=== PATIENT | female | born 1950 | race Caucasian/White ===

== ENCOUNTER 2020-07-28 08:04 | Outpatient (NON) | payer MEDICARE, SELFPAY ==
[2020-07-28 19:23] LABS: SARS-CoV-2 RNA PCR Positive
== END 2020-07-28 08:05 ==
PROVIDERS: PCP Family Medicine; Visit Provider Nurse Practitioner Family
DX: U07.1 COVID-19 (principal)
CPT/HCPCS: C9803; U0003

== ENCOUNTER → 2020-09-19 10:13 | Outpatient (CLI) | payer MEDICARE, SELFPAY ==
--- NOTE | ~2020-09-19 | MM_ITS ---
EXAMINATION: MM screening [facility] BI w rocky HISTORY: Screening TECHNIQUE: Craniocaudal and mediolateral oblique 3-D tomosynthesis images were obtained and synthetic 2-D images were generated. CAD analysis was submitted and interpreted. COMPARISON: Comparison to multiple prior studies sequentially, with oldest reviewed study dated 04/22. BREAST PARENCHYMAL COMPOSITION: There are scattered areas of fibroglandular density. FINDINGS: There is no evidence of suspicious mass, calcification, or architectural distortion to sugg est malignancy in either breast. There has been no suspicious interval change. IMPRESSION: 1. No mammographic evidence of malignancy. 2. Recommend routine screening mammography in one year. BI-RADS Category 1: Negative Reviewed, dictated and finalized at location A. [employer]
--- NOTE | ~2020-09-19 | DEXA_ITS ---
Bone Density Report Name: Lorraine Gold Age: 70 Sex: Female Ethnicity: White Date of : 1950 Indication: osteopenia; prior fracture; postmenopausal Referring Provider: Cristina Neff Study: Bone densitometry was performed. Exam Date: September 19, 2020 Accession number: [id number] Bone Density: Region BMD T-score Z-score Classification AP Spine (L1-L4) 1.029 -0.2 1.8 Normal Femoral Neck (Left) 0.779 -0.6 1.1 Normal Total Hip (Left) 0.862 -0.7 0.8 Normal Femoral Neck (Right) 0.767 -0.7 1.0 Normal Total Hip (Right) 0.813 -1.1 0.4 Osteopenia Total Hip Mean 0.838 -0.9 0.6 Normal World Health Organization criteria for BMD impression classify patients as: Normal (T-score at or above -1.0), Osteopenia (T-score between -1.0 and -2.5), or Osteoporosis (T-score at or below -2.5). 10-year Fracture Risk(1): Major Osteoporotic Fracture 13% Hip Fracture 1.0% Reported Risk Factors: [place] (), Neck BMD=0.767, BMI=31.5, previous fracture (1) FRAX(R) Version 3.08. Fracture probability calculated for an untreated patient. Fracture probability may be lower if the patient has received treatment. Previous Exams: Region Exam Age BMD T-score BMD Change BMD Change Date g/cm2 vs Baseline vs Previous AP Spine(L1-L4) 09/19/2020 70 1.029 -0.2 0.026* 0.006 06/16/2018 68 1.023 -0.2 0.020 0.020 05/16/2015 65 1.002 -0.4 Total Hip(Left) 09/19/2020 70 0.862 -0.7 0.006 0.021 06/16/2018 68 0.841 -0.8 -0.015 -0.015 05/16/2015 65 0.857 -0.7 Total Hip(Right) 09/19/2020 70 0.813 -1.1 -0.026 0.010 06/16/2018 68 0.803 -1.1 -0.036* -0.036* 05/16/2015 65 0.839 -0.8 *Denotes significance at 95% confidence level, LSC for AP Spine = 0.022 g/cm2, LSC for Total Hip = 0.027 g/cm2 Clinical Information Provided by Patient: Has had a low trauma fracture Has used the following medications: Vitamin D, Calcium Patient maximum height was 64.8 Menopause Age: 52 Drinks caffeinated beverages Onset of menses at age 13 Number of children 0 Impression: The patient has low bone mass, based on the Right Total Hip T-score. The patient has an estimated ten-year risk of hip fracture of 1% and an estimated ten-year risk of major fracture of 13%, based on the WHO FRAX algorithm. The patient has risk factors, including: previous fracture.
== END ==
PROVIDERS: PCP Family Medicine; Visit Provider Student in an Organized Health Care Education/Training Program
DX: Z12.31 Encounter for screening mammogram for malignant neoplasm of breast (principal); Z78.0 Asymptomatic menopausal state; M85.851 Other specified disorders of bone density and structure, right thigh
CPT/HCPCS: 77063; 77067; 77080

== ENCOUNTER → 2020-10-26 10:36 | Outpatient (CLI) | payer MEDICARE, SELFPAY ==
--- NOTE | ~2020-10-26 | XR_ITS ---
XR lumbar spine 2-3V DATE: 10/26/2020 11:24 INDICATION: Low back pain TECHNIQUE: AP, lateral, coned lateral lumbosacral views COMPARISON: None FINDINGS: Diffuse osteopenia. Minimal levoscoliosis of lumbar spine. No lumbar spine fracture or bone destruction is evident. The lumbar pedicles and included lower thora cic pedicles are intact. There is multilevel degenerative disc disease, particularly severe at L3-4 and L5-S1. There is grade 1 anterolisthesis at L4-5 due to degenerative change at the apophyseal joints. The sacroiliac joints appear normal. IMPRESSION: Severe degenerative disc disease at L3-4 and L5-S1 Grade 1 anterolisthesis at L4-5 Diffuse osteopenia Reviewed, dictated and finalized at location A.
== END ==
PROVIDERS: PCP Family Medicine; Visit Provider Family Medicine
DX: M47.817 Spondylosis without myelopathy or radiculopathy, lumbosacral region (principal); M85.88 Other specified disorders of bone density and structure, other site
CPT/HCPCS: 72100

== ENCOUNTER → 2021-11-02 11:13 | Outpatient (CLI) | payer MEDICARE, SELFPAY ==
--- NOTE | ~2021-11-02 | MM_ITS ---
EXAMINATION: MM screening [facility] BI w rocky HISTORY: Screening TECHNIQUE: Craniocaudal and mediolateral oblique 3-D tomosynthesis images were obtained and synthetic 2-D images were generated. CAD analysis was submitted and interpreted. COMPARISON: Comparison to multiple prior studies sequentially, with oldest reviewed study dated 05/22. BREAST PARENCHYMAL COMPOSITION: There are scattered areas of fibroglandular density. FINDINGS: There is no evidence of suspicious mass, calcification, or architectural distortion to sugg est malignancy in either breast. There has been no suspicious interval change. IMPRESSION: 1. No mammographic evidence of malignancy. 2. Recommend routine screening mammography in one year. BI-RADS Category 1: Negative Reviewed, dictated and finalized at location A.
== END ==
PROVIDERS: PCP Family Medicine; Visit Provider Student in an Organized Health Care Education/Training Program
DX: Z12.31 Encounter for screening mammogram for malignant neoplasm of breast (principal)
CPT/HCPCS: 77063; 77067

== ENCOUNTER 2022-04-28 09:21 | Emergency (ER) | payer MEDICARE, SELFPAY ==
--- NOTE | ~2022-04-28 | CT_ITS ---
EXAMINATION: CTA chest PE protocol DATE: 04/28/2022 12:32 CDT INDICATION: Chest pain and dyspnea TECHNIQUE: Computed tomographic angiography (CTA) of the chest was performed with 100 mL Omnipaque-35 0 intravenous contrast. The dose-length product was 339.53 mGy-cm. Maximum intensity projection 3D-re constructions of the aorta and other arteries were constructed by the technologist on a separate work station. Automated exposure control and iterative reconstruction technique were employed. COMPARISON: None. FINDINGS: Study is technically adequate without evidence for pulmonary embolism. No significant pleural or pericardial effusion. No evidence for aortic aneurysm or dissection. Heart size normal. No thoracic lymphadenopathy. The upper abdomen is unremarkable. No endobronchial lesions. There is dependent atelectasis. No pneum othorax. No suspicious pulmonary nodules or masses. Mild thoracic spondylosis. IMPRESSION: 1. No evidence for pulmonary embolism. No acute cardiopulmonary disease. Reviewed, dictated and finalized at location A.
--- NOTE | ~2022-04-28 | XR_ITS ---
EXAMINATION: XR chest 1V portable 04/28/2022 09:41 INDICATION: Cough. Right posterior chest pain. PROCEDURE: AP portable chest COMPARISON: 09/13/2015 FINDINGS: The lungs are clear. The cardiomediastinal silhouette is within normal limits. There are no pleural effusions. There is no pneumothorax suspected. IMPRESSION: 1: NO ACUTE CARDIOPULMONARY DISEASE. Reviewed, dictated and finalized at location A.
[2022-04-28 09:25] VITALS: BP 142/82; PULSE 102; RESP 16; TEMP 36.9; O2SAT 100
[2022-04-28 09:44] VITALS: O2SAT 99
[2022-04-28 10:16] LABS: SARS-CoV-2 RNA PCR Negative
[2022-04-28] MEDS: SODIUM CHLORIDE 0.9% IV 1,000 ML 999 ML IV CONT (10:53)
[2022-04-28 11:01] LABS: Basophils Percent Auto 0.3 % (0.2-1.2); Eosinophils Percent Auto 0.2 % (0-4.4); Hemoglobin 13.9 g/dL (12.0-15.0); Immature Granulocyte Absolute 0.07 K/mm3 (0.00-0.031); Immature Granulocyte Percent A 0.6 % (0-0.5); Lymphocytes Absolute Auto 0.91 K/mm3 (0.9-3.2); Lymphocytes Percent Auto 7.5 % (18.3-44.2); Mean Corpuscular HGB Conc 33.1 g/dl (32-36); Mean Corpuscular Volume 93.8 fl (80-100); Mean Platelet Volume 9.3 fl (7.4-10.4); Monocytes Absolute Auto 0.7 K/mm3 (0.1-0.6); Monocytes Percent Auto 5.8 % (2.6-8.5); Neutrophils Absolute Auto 10.4 K/mm3 (1.3-6.7); Neutrophils Percent Auto 85.6 % (45.5-73.1); Platelet Count Result 288 k/mm3 (150-375); Red Blood Count 4.48 M/mm3 (4.2-5.4); Red Cell Distribution Width 13.3 % (11.5-14.5); White Blood Count 12.1 K/mm3 (4.5-10.0)
[2022-04-28 11:15] LABS: Alanine Aminotransferase 30 U/L (6-35); Albumin Level 4.9 g/dL (3.5-5.1); Alkaline Phosphatase 119 U/L (38-126); Anion Gap 13 mmol/L (8-16); Aspartate Amino Transferase 31 U/L (14-36); Bilirubin,Total 0.5 mg/dL (0.2-1.3); Blood Urea Nitrogen 8 mg/dL (7-17); Calcium 9.8 mg/dL (8.4-10.2); Carbon Dioxide 26 mmol/L (22-30); Chloride 93 mmol/L (98-107); Estimated CRCL calculation 60 ml/min; Estimated Glomerular Filt Rate > 60; Glucose 119 mg/dL (65-110); Lipase 56 U/L (23-300); Potassium 4.1 mmol/L (3.4-5.0); Sodium 132 mmol/L (137-145)
[2022-04-28 11:24] VITALS: TEMP 36.9
[2022-04-28 11:46] LABS: Add Urine Microscopic? NO; Appearance Urine Clear (Clear); Bilirubin Urine Negative (Negative); Blood Urine Negative (Negative); Color Urine Yellow (Yellow); Glucose Urine UA Negative (Negative); Ketones Urine Negative (Negative); Leukocyte Esterase Ur Negative LEU/UL (Negative); Nitrate Urine Negative (Negative); Protein Urine Negative (Negative); Specific Grav Ur 1.014 (1.001-1.035); Urobilinogen Urine Negative mg/dL (<2.0)
[2022-04-28 13:14] VITALS: BP 120/64; PULSE 79; RESP 16; O2SAT 99
--- NOTE | 2022-04-28 13:40 | ED.GENADULT ---
HPI - General Adult General Chief complaint: Upper Respiratory Infection Stated complaint: sore throat, cough, right flank pain Time Seen by Provider: 04/28/22 09:22 Source: RN notes reviewed History of Present Illness HPI narrative: Patient presents emergency department from home for upper respiratory infection symptoms. Patient states she has had a sore throat and a cough that began 2 days ago the cough has been mildly productive of yellow sputum she states that with that she is also been having pain in her right lateral and posterior lateral ribs in the lower aspect she states the pain is worse with deep inspiration coughing and movement and better with rest she denies any fevers or chills notes mild rhinorrhea she denies any chest pain shortness of breath abdominal pain nausea vomiting or any other symptoms Related Data Home Medications Medication Instructions Recorded Confirmed aspirin 81 mg tablet,delayed 81 mg PO DAILY 09/03/19 04/09/22 release calcium carbonate 600 mg calcium 600 mg PO DAILY 09/03/19 04/09/22 (1,500 mg) tablet (Calcium) cholecalciferol (vitamin D3) 25 1,000 unit PO DAILY 09/03/19 04/09/22 mcg (1,000 unit) capsule L.acidophilus-B.bifidum-B.longum cap PO 09/20/20 04/09/22 240 mg (3 billion cell) capsule glucosamine-chondroitin 250 mg-200 2 tablet PO TID 09/20/20 04/09/22 mg tablet (Osteo Bi-Flex) multivitamin (Daily Multi-Vitamin 1 tablet PO DAILY 09/20/20 04/09/22 tablet) Allergies Allergy/AdvReac Type Severity Reaction Status Date / Time levofloxacin [From Levaquin] Allergy Intermediate Unknown Verified 04/09/22 09:47 azithromycin Allergy Unknown Verified 04/09/22 09:47 escitalopram Allergy Unknown Verified 04/09/22 09:47 Review of Systems Review of Systems: Gen.: Denies fevers or chills ENT: Denies congestion Respiratory: Denies shortness of breath or cough CV: Denies chest pain or palpitations GI: Denies abdominal pain nausea, emesis or diarrhea no tenderness in the right upper quadrant denies burning, urgency, frequency or hematuria Back: No midline thoracic or lumbar chest palpation tender palpation of the right lateral and posterior ribs 8 through 10 pain increased with deep inspiration and coughing and rotation of the torso Musculoskeletal: Denies back pain or muscle pain Neuro: Denies numbness, tingling, weakness or focal weakness Skin: Denies rash Except as documented, all other systems reviewed and negative [facility] Past Medical History Medical History Acid reflux Anxiety and depression Hyperlipidemia Hypertension JACQUELINE (obstructive sleep apnea) Surgical History Surgical History History of hernia repair History of unilateral oophorectomy S/P removal of right ovary Status post hernia repair Family History Family History Mother Family history of blood dyscrasia Hypertension Cerebrovascular accident Sibling Family history of blood dyscrasia Father Family history of Alzheimer's disease Social History Social History Smoking packs per day: 1 Smoking cigarettes per day: 20.0 Years smoked: 3 Smoking pack-years: 3.00 Smoking status: Former smoker Tobacco type: cigarettes Second hand tobacco smoke exposure: No Smoking end date: 07/22/85 Alcohol intake: current Alcohol use details: rarely Substance use: never Substance use type: does not use Gender identity (if verbalized by the patient): Female Course Course Emergency Course: Discussed with patient results of workup and diagnosis. Discussed need for follow-up with primary care, proper use of medication, and reasons to return to the emergency department. Patient understands and agrees to current treatment plan Vital Signs Vital signs: Vital Signs Temperature 98.5
--- NOTE | 2022-04-28 13:44 | ECG_ITS ---
Measurements Intervals [place] Rate: 71 P: 8 CO: 141 QRS: -23 QRSD: 82 T: -7 QT: 388 QTc: 422 Interpretive Statements SINUS RHYTHM BORDERLINE LEFT AXIS DEVIATION [QRS AXIS < -20] POOR R-WAVE PROGRESSION ABNORMAL ECG NO PREVIOUS ECG AVAILABLE FOR COMPARISON Electronically Signed On 04-29-2022 10:13:04 CDT by Jason Rosales M.D.
[2022-04-28] MEDS: AMOXICILLIN/CLAVULANATE K 875-125 MG TAB 1 TABLET PO (14:04)
== END 2022-04-28 14:22 | disposition home or self-care (01) ==
PROVIDERS: Emergency Provider Emergency Medicine; PCP Family Medicine
DX: J06.9 Acute upper respiratory infection, unspecified (principal); R09.1 Pleurisy; Z20.822 Contact with and (suspected) exposure to COVID-19; E78.5 Hyperlipidemia, unspecified; I10 Essential (primary) hypertension; G47.33 Obstructive sleep apnea (adult) (pediatric); K21.9 Gastro-esophageal reflux disease without esophagitis; F41.9 Anxiety disorder, unspecified; F32.A Depression, unspecified; Z90.721 Acquired absence of ovaries, unilateral; Z87.891 Personal history of nicotine dependence; Z79.82 Long term (current) use of aspirin
CPT/HCPCS: 36415; 71045; 71275; 80053; 81003; 83690; 85025; 85380; 93005; 96361; 96374; 99284; A9270; C9803; J0131; J7030; Q9967; U0003; U0005

== ENCOUNTER → 2023-01-07 10:08 | Outpatient (CLI) | payer MEDICARE, SELFPAY ==
--- NOTE | ~2023-01-07 | MM_ITS ---
EXAMINATION: MM screening [facility] BI w rocky HISTORY: Screening mammogram TECHNIQUE: Craniocaudal and mediolateral oblique 3-D tomosynthesis images were obtained and synthetic 2-D images were generated. CAD analysis was submitted and interpreted. COMPARISON: November 02, 2021, September 19, 2020, July 10, 2019 bilateral screening mammogram examinatio ns BREAST PARENCHYMAL COMPOSITION: There are scattered areas of fibroglandular density. FINDINGS: There is no evidence of suspicious mass, calcification, or architectural distortion to sugg est malignancy in either breast. There has been no suspicious interval change. IMPRESSION: 1. No mammographic evidence of malignancy. 2. Recommend routine screening mammography in one year. BI-RADS Category 1: Negative Reviewed, dictated and finalized at location A.
== END ==
PROVIDERS: PCP Family Medicine; Visit Provider Obstetrics & Gynecology
DX: Z12.31 Encounter for screening mammogram for malignant neoplasm of breast (principal)
CPT/HCPCS: 77063; 77067

== ENCOUNTER 2023-03-12 03:31 | Day surgery (SDC) | payer MEDICARE, SELFPAY ==
[2023-03-01 09:04] VITALS: BMI 31.6
--- NOTE | 2023-03-12 08:04 | WPDANESEPPF ---
Anes - Initial Pre Proc Eval Procedure: Operation Date: 03/12/23 13:00 Proposed Procedures p Screening Colonoscopy - Dimitris Leavitt MD Date/Time: 03/12/23 08:04 Surgeon: Dimitris Leavitt MD Pre Op Diagnosis: neoplasm screening Patient Data Age: 73 Gender: F Height: 1.63 m Weight: 83.5 kg Allergies Allergy/AdvReac Type Severity Reaction Status Date / Time levofloxacin [From Levaquin] Allergy Intermediate Unknown Verified 03/12/23 11:45 azithromycin Allergy Unknown Verified 03/12/23 11:45 escitalopram Allergy Unknown Verified 03/12/23 11:45 Home Medications Medication Instructions Recorded Confirmed Type aspirin 81 mg tablet,delayed 81 mg PO DAILY 09/03/19 03/12/23 History release calcium carbonate 600 mg calcium 600 mg PO DAILY 09/03/19 03/12/23 History (1,500 mg) tablet (Calcium) cholecalciferol (vitamin D3) 25 1,000 unit PO DAILY 09/03/19 03/12/23 History mcg (1,000 unit) capsule L.acidophilus-B.bifidum-B.longum 240 cap PO DAILY 09/20/20 03/12/23 History 240 mg (3 billion cell) capsule glucosamine-chondroitin 250 mg-200 2 tablet PO TID 09/20/20 03/12/23 History mg tablet (Osteo Bi-Flex) multivitamin (Daily Multi-Vitamin 1 tablet PO DAILY 09/20/20 03/12/23 History tablet) estradiol 0.01% (0.1 mg/gram) 1 g vaginal 2XW #42.5 grams 07/28/21 03/12/23 Rx vaginal cream (Estrace) naproxen 250 mg tablet 250 mg PO BID #10 tabs 04/28/22 03/12/23 Rx omeprazole 20 mg capsule,delayed 20 mg PO DAILY #90 caps 07/05/22 03/12/23 Rx release amlodipine 5 mg tablet 5 mg PO DAILY #90 tabs 08/07/22 03/12/23 Rx simvastatin 20 mg tablet 20 mg PO DAILY #90 tabs 08/07/22 03/12/23 Rx meloxicam 15 mg tablet See Rx Instructions .Route 10/01/22 03/12/23 Rx .COMPLEX #90 tabs lisinopril 30 mg tablet 30 mg PO DAILY #90 tabs 10/09/22 03/12/23 Rx ketoconazole 2 % topical cream 1 applic topical DAILY #30 grams 01/03/23 03/12/23 Rx nystatin 100,000 unit/gram topical 1 applic topical TID PRN fungal 01/15/23 03/12/23 Rx powder infection groin #30 grams alprazolam 0.5 mg tablet 0.5 mg PO BID PRN anxiety #60 tabs 02/18/23 03/12/23 Rx fluoxetine 40 mg capsule 40 mg PO DAILY #90 caps 03/04/23 03/12/23 Rx Patient hx anesthesia problems: none Family hx anesthesia problems: none Results Review: All pre-operative results and documents have been reviewed as part of the pre-operative evaluation. [facility] Past Medical History Medical History Acid reflux Anxiety and depression Hyperlipidemia Hypertension JACQUELINE (obstructive sleep apnea) Surgical History Surgical History History of hernia repair History of unilateral oophorectomy S/P removal of right ovary Status post hernia repair Family History Family History Mother Family history of blood dyscrasia Hypertension Cerebrovascular accident Sibling Family history of blood dyscrasia Father Family history of Alzheimer's disease Social History Social History Smoking packs per day: 1 Smoking cigarettes per day: 20.0 Years smoked: 3 Smoking pack-years: 3.00 Smoking status: Former smoker Tobacco type: cigarettes Second hand tobacco smoke exposure: No Smoking end date: 07/22/85 Alcohol intake: former Alcohol use details: rarely Substance use: never Substance use type: does not use Living arrangements: with family Occupation/Education: retired Gender identity (if verbalized by the patient): Female Spiritual care concerns: No Anes - Eval Final PreProcedure Day of Procedure 03/12/23 08:04 Patient weight: obese Heart: regular rate and rhythm Lungs: clear to auscultation Airway: Mallampati scale class II Neurological: alert and oriented Last oral intake: >/= 8 hours ASA classification: III Emerg
[2023-03-12 11:05] VITALS: BP 160/80; PULSE 64; RESP 18; TEMP 36.2; O2SAT 100; BMI 31.2
[2023-03-12] MEDS: LACTATED RINGERS 1,000 ML 150 ML IV CONT (11:32)
--- NOTE | 2023-03-12 11:39 | PM.HPGS ---
History of Present Illness History of Present Illness Consent: Risks, benefits, and alternatives have been discussed and questions answered. Patient agrees to proceed with procedure. Chief complaint: neoplasm screening Narrative: Lorraine Gold is a 73 year old female Presents for screening colonoscopy. Is been more than 10 years since previous endoscopically exam. Patient's current weight appetite and bowel movements are normal. She denies abdominal pain. She has occasionally have bright red blood per rectum attributed to hemorrhoids. Family history noncontributory. Patient presents today for neoplasia screening colonoscopy. Review of Systems Review of Systems: Review of systems noncontributory. [facility] Past Medical History Medical History Acid reflux Anxiety and depression Hyperlipidemia Hypertension JACQUELINE (obstructive sleep apnea) Surgical History Surgical History History of hernia repair History of unilateral oophorectomy S/P removal of right ovary Status post hernia repair Family History Family History Mother Family history of blood dyscrasia Hypertension Cerebrovascular accident Sibling Family history of blood dyscrasia Father Family history of Alzheimer's disease Social History Social History Smoking packs per day: 1 Smoking cigarettes per day: 20.0 Years smoked: 3 Smoking pack-years: 3.00 Smoking status: Former smoker Tobacco type: cigarettes Second hand tobacco smoke exposure: No Smoking end date: 07/22/85 Alcohol intake: former Alcohol use details: rarely Substance use: never Substance use type: does not use Living arrangements: with family Occupation/Education: retired Gender identity (if verbalized by the patient): Female Spiritual care concerns: No Meds Home Medications and Allergies Home Medications Medication Instructions Recorded Confirmed Type aspirin 81 mg tablet,delayed 81 mg PO DAILY 09/03/19 03/01/23 History release calcium carbonate 600 mg calcium 600 mg PO DAILY 09/03/19 03/01/23 History (1,500 mg) tablet (Calcium) cholecalciferol (vitamin D3) 25 1,000 unit PO DAILY 09/03/19 03/01/23 History mcg (1,000 unit) capsule L.acidophilus-B.bifidum-B.longum 240 cap PO DAILY 09/20/20 03/01/23 History 240 mg (3 billion cell) capsule glucosamine-chondroitin 250 mg-200 2 tablet PO TID 09/20/20 03/01/23 History mg tablet (Osteo Bi-Flex) multivitamin (Daily Multi-Vitamin 1 tablet PO DAILY 09/20/20 03/01/23 History tablet) estradiol 0.01% (0.1 mg/gram) 1 g vaginal 2XW #42.5 grams 07/28/21 03/01/23 Rx vaginal cream (Estrace) naproxen 250 mg tablet 250 mg PO BID #10 tabs 04/28/22 01/03/23 Rx omeprazole 20 mg capsule,delayed 20 mg PO DAILY #90 caps 07/05/22 03/01/23 Rx release amlodipine 5 mg tablet 5 mg PO DAILY #90 tabs 08/07/22 03/01/23 Rx simvastatin 20 mg tablet 20 mg PO DAILY #90 tabs 08/07/22 03/01/23 Rx meloxicam 15 mg tablet See Rx Instructions .Route 10/01/22 03/01/23 Rx .COMPLEX #90 tabs lisinopril 30 mg tablet 30 mg PO DAILY #90 tabs 10/09/22 03/01/23 Rx ketoconazole 2 % topical cream 1 applic topical DAILY #30 grams 01/03/23 01/03/23 Rx nystatin 100,000 unit/gram topical 1 applic topical TID PRN fungal 01/15/23 Rx powder infection groin #30 grams alprazolam 0.5 mg tablet 0.5 mg PO BID PRN anxiety #60 tabs 02/18/23 03/01/23 Rx sodium,potassium,mag sulfates 17.5 See Rx Instructions PO .COMPLEX 02/28/23 Rx gram-3.13 gram-1.6 gram oral soln #354 mL (Suprep Bowel Prep Kit) fluoxetine 40 mg capsule 40 mg PO DAILY #90 caps 03/04/23 Rx Allergies Allergy/AdvReac Type Severity Reaction Status Date / Time levofloxacin [From Levaquin] Allergy Intermediate Unknown Verified 03/01/23 0
[2023-03-12 13:15] VITALS: BP 115/60; PULSE 69; RESP 26; O2SAT 98
[2023-03-12 13:25] VITALS: BP 126/62; PULSE 66; RESP 23; O2SAT 98
[2023-03-12 13:35] VITALS: BP 124/66; PULSE 60; RESP 19; O2SAT 100
== END 2023-03-12 13:45 | disposition home or self-care (01) ==
PROVIDERS: PCP Family Medicine; Visit Provider Internal Medicine Gastroenterology
PROC: 0DJD8ZZ Inspection of Lower Intestinal Tract, Via Natural or Artificial Opening Endoscopic (ICD-10-PCS; CPT 45378; principal; 2023-03-12 13:00)
DX: Z12.11 Encounter for screening for malignant neoplasm of colon (principal); K64.8 Other hemorrhoids; K57.30 Diverticulosis of large intestine without perforation or abscess without bleeding; K21.9 Gastro-esophageal reflux disease without esophagitis; I10 Essential (primary) hypertension; E78.5 Hyperlipidemia, unspecified; G47.33 Obstructive sleep apnea (adult) (pediatric); F41.8 Other specified anxiety disorders; Z87.891 Personal history of nicotine dependence; Z79.82 Long term (current) use of aspirin; E66.9 Obesity, unspecified; Z68.31 Body mass index [BMI] 31.0-31.9, adult
CPT/HCPCS: G0121; J2704; J7120

== ENCOUNTER 2023-10-09 11:09 | Outpatient (CLI) | payer MEDICARE, SELFPAY ==
--- NOTE | ~2023-10-09 | XR_ITS ---
Right Shoulder Technique: AP and axillary views were obtained. Clinical History: Pain Findings: No fracture or dislocation is seen. Osseous alignment is anatomic. The glenohumeral and acr omioclavicular joint spaces are preserved. Soft tissues are unremarkable. Impression: Unremarkable right shoulder radiographs. Reviewed, dictated and finalized at [facility]. Impression: Unremarkable right shoulder radiographs.
== END 2023-10-09 11:10 ==
PROVIDERS: PCP Family Medicine; Visit Provider Family Medicine
DX: M25.511 Pain in right shoulder (principal)
CPT/HCPCS: 73030

== ENCOUNTER 2024-02-24 10:10 | Outpatient (CLI) | payer MEDICARE, SELFPAY ==
--- NOTE | ~2024-02-24 | MM_ITS ---
EXAMINATION: MM screening [facility] BI w rocky HISTORY: Screening TECHNIQUE: Craniocaudal and mediolateral oblique 3-D tomosynthesis images were obtained and synthetic 2-D images were generated. CAD analysis was submitted and interpreted. COMPARISON: Comparison to multiple prior studies sequentially, with oldest reviewed study dated 05/23. BREAST PARENCHYMAL COMPOSITION: Not dense: There are scattered areas of fibroglandular density. FINDINGS: There is no evidence of suspicious mass, calcification, or architectural distortion to sugg est malignancy in either breast. There has been no suspicious interval change. IMPRESSION: 1. No mammographic evidence of malignancy. 2. Recommend routine screening mammography in one year. BI-RADS Category 1: Negative Reviewed, dictated and finalized at location B.
== END 2024-02-24 10:11 ==
LOC: MICIMG 10:10
PROVIDERS: PCP Family Medicine; Visit Provider Family Medicine
DX: Z12.31 Encounter for screening mammogram for malignant neoplasm of breast (principal)
CPT/HCPCS: 77063; 77067

== ENCOUNTER 2024-03-02 09:51 | Outpatient (CLI) | payer MEDICARE, SELFPAY ==
--- NOTE | ~2024-03-02 | DEXA_ITS ---
Bone Density Report Name: TREVER JETER Age: 74 Sex: Female Ethnicity: White Date of : 1950 Indication: postmenopausal; screening for osteoporosis; parental hip fracture; Referring Provider: MICKY SEPULVEDA Study: Bone densitometry was performed. Exam Date: March 02, 2024 Accession number: [id number] Bone Density: Region BMD T-score Z-score Classification AP Spine(L1-L4) 1.040 -0.1 2.2 Normal Femoral Neck (Left) 0.768 -0.7 1.2 Normal Total Hip (Left) 0.832 -0.9 0.7 Normal Femoral Neck (Right) 0.752 -0.9 1.0 Normal Total Hip (Right) 0.808 -1.1 0.5 Osteopenia Total Hip Mean 0.820 -1.0 0.6 Normal World Health Organization criteria for BMD impression classify patients as: Normal (T-score at or above -1.0), Osteopenia (T-score between -1.0 and -2.5), or Osteoporosis (T-score at or below -2.5). 10-year Fracture Risk(1): Major Osteoporotic Fracture 13% Hip Fracture 2.7% Reported Risk Factors: [place] (), Neck BMD=0.752, BMI=32.4, parental fracture (1) FRAX(R) Version 3.08. Fracture probability calculated for an untreated patient. Fracture probability may be lower if the patient has received treatment. Clinical Information Provided by Patient: Parent has had a hip fracture Has used the following medications: Vitamin D, Calcium Patient maximum height was 64.0 No regular weight bearing exercise Does not regularly consume dairy products Drinks caffeinated beverages Onset of menses at age 13 Number of children 0 Impression: The patient has low bone mass, based on the Right Total Hip T-score. The patient has an estimated ten-year risk of hip fracture of 2.7% and an estimated ten-year risk of major fracture of 13%, based on the WHO FRAX algorithm. The patient has risk factors, including: parental hip fracture. Discussion: BONE DENSITY IS LOW AT ONE OR MORE SKELETAL SITES. This patient's lowest T-score is low at one or more skeletal sites. It meets the World Health Organization's (WHO) criteria for ?low bone mass? (T-score between -1.0 and -2.5). The patient's 10-year risk of fracture as calculated by FRAX is less than the threshold where pharmacological therapy is recommended by the National Osteoporosis Foundation (NOF). However, all treatment decisions require clinical judgment and consideration of individual patient factors, including patient preferences, comorbidities, previous drug use, risk factors not captured in the FRAX model (e.g., frailty, falls, vitamin D deficiency, increased bone turnover, interval significant decline in bone density) and possible under or overestimation of fracture risk by FRAX. The patient should follow a healthful lifestyle (good nutrition with adequate calcium and vitamin D, and appropriate weight-bearing exercise). Follow-Up: Consid
== END 2024-03-02 09:52 | disposition home or self-care (01) ==
LOC: ANHIMG 09:52
PROVIDERS: PCP Family Medicine; Visit Provider Family Medicine
DX: Z78.0 Asymptomatic menopausal state (principal); M85.851 Other specified disorders of bone density and structure, right thigh
CPT/HCPCS: 77080

== ENCOUNTER 2024-07-20 11:03 | Outpatient (CLI) | payer MEDICARE, SELFPAY ==
[2024-07-20 11:57] LABS: Influenza A QL RT-PCR Positive (Negative); Influenza B QL RT-PCR Negative (Negative); RSV RNA, RT-PCR Negative (Negative); SARS-CoV-2 RNA PCR Negative (Negative)
== END 2024-07-20 11:04 | disposition home or self-care (01) ==
LOC: ANHLAB 11:05
PROVIDERS: PCP Family Medicine; Visit Provider Physician Assistant Medical
DX: R50.9 Fever, unspecified (principal); R05.9 Cough, unspecified; Z20.822 Contact with and (suspected) exposure to COVID-19
CPT/HCPCS: 87637

== ENCOUNTER 2025-03-23 09:15 | Outpatient (CLI) | payer MEDICARE, SELFPAY ==
--- NOTE | ~2025-03-23 | MM_ITS ---
EXAMINATION: MM screening [facility] BI w rocky HISTORY: Screening TECHNIQUE: Craniocaudal and mediolateral oblique 3-D tomosynthesis images were obtained and synthetic 2-D images were generated. CAD analysis was submitted and interpreted. COMPARISON: Mammograms from 02/24/2024 and 01/07/2023 BREAST PARENCHYMAL COMPOSITION: There are scattered areas of fibroglandular density. FINDINGS: There is no evidence of suspicious mass, calcification, or architectural distortion in either breast to suggest malignancy. There has been no significant interval change. IMPRESSION: 1. No mammographic evidence of malignancy. Recommend routine screening mammography in one year. BI-RADS Category 1: Negative Reviewed, dictated and finalized at location Q. IMPRESSION: 1. No mammographic evidence of malignancy. Recommend routine screening mammogra phy in one year. BI-RADS Category 1: Negative
== END 2025-03-23 09:16 | disposition home or self-care (01) ==
PROVIDERS: PCP Family Medicine; Visit Provider Family Medicine
DX: Z12.31 Encounter for screening mammogram for malignant neoplasm of breast (principal)
CPT/HCPCS: 77063; 77067